=== PATIENT | female | born 1955 | race Caucasian/White ===

== ENCOUNTER 2019-01-16 10:16 | Emergency (ER) | payer OTHER, MEDICAID ==
[~2019-01-16] VITALS: Ht 157.5 cm; Wt 54.0 kg
[2019-01-16 10:19] VITALS: BP_SYST 104
[2019-01-16 11:50] VITALS: BP_SYST 114
== END 2019-01-16 11:50 | disposition home or self-care (01) ==
LOC: SED 10:16
DX: S20.211A Contusion of right front wall of thorax, initial encounter (principal); I10 Essential (primary) hypertension; F17.210 Nicotine dependence, cigarettes, uncomplicated; Z88.0 Allergy status to penicillin; W18.39XA Other fall on same level, initial encounter; Y93.89 Activity, other specified; Y92.89 Other specified places as the place of occurrence of the external cause; Y99.8 Other external cause status
CPT/HCPCS: 71100; 99283

== ENCOUNTER 2019-01-17 09:30 | Outpatient (CLI) | payer OTHER, MEDICAID | END 2019-01-17 21:20 | disposition home or self-care (01) | LOC: SRD 09:30 | PROVIDERS: ATTEND Internal Medicine | DX: Z13.820 Encounter for screening for osteoporosis (principal); I10 Essential (primary) hypertension; B18.2 Chronic viral hepatitis C; M48.54XA Collapsed vertebra, not elsewhere classified, thoracic region, initial encounter for fracture; Q89.8 Other specified congenital malformations; M40.294 Other kyphosis, thoracic region | CPT/HCPCS: 71046-TC ==

== ENCOUNTER 2019-01-19 08:39 | Outpatient (CLI) | payer OTHER, MEDICAID | END 2019-01-19 17:48 | disposition home or self-care (01) | LOC: SUS 08:39 | PROVIDERS: ATTEND Internal Medicine | DX: Z13.820 Encounter for screening for osteoporosis (principal); I10 Essential (primary) hypertension; B18.2 Chronic viral hepatitis C | CPT/HCPCS: 76700-TC ==